=== PATIENT | female | born 1985 | race Hispanic/Latino ===

== ENCOUNTER 2018-11-08 17:46 | Emergency (ER) | payer SELFPAY ==
[2018-11-08] MEDS ORDERED: diphenhydrAMINE 25 MG CAP ONE (21:41)
[2018-11-08] MEDS ORDERED: Ketorolac Tromethamine 30 MG/ML VIAL ONE (21:41)
[2018-11-08] MEDS ORDERED: Ondansetron ODT 4 MG TAB ONE (21:41)
[2018-11-08] MEDS ORDERED: Metoclopramide HCl 10 MG TAB ONE (21:42)
== END 2018-11-08 22:29 | disposition home or self-care (01) ==
LOC: ERS 17:46
DX: G43.909 Migraine, unspecified, not intractable, without status migrainosus (principal)
CPT/HCPCS: 96372; J1885; J8597; Q0162; Q0163

== ENCOUNTER 2019-08-15 15:59 | Emergency (ER) | payer SELFPAY ==
[~2019-08-15 15:59] MED LIST: Iopamidol-370 76% 500 ML 1 ML ONE
[2019-08-15 17:34] LABS: #Basophils 0.1 thou/uL (0.0-0.2); #Eosinphils 0.4 thou/uL (0.0-0.7); #Lymphocytes 2.4 thou/uL (1.20-3.40); #Monocytes 0.9 thou/uL (0.11-0.59); #Neutrophils 5.6 thou/uL (1.40-6.50); %Basophils 0.8 % (0.0-1.0); %Eosinophils 4.6 % (0.0-10.0); %Lymphocytes 25.4 % (21.0-51.0); %Monocytes 9.3 % (0.0-10.0); Hemoglobin 9.7 g/dL (12.0-16.0); Mean Corpuscular Hemoglobin 26.3 pg (27.0-31.0); Mean Corpuscular Volume 82.1 fL (78.0-98.0); Mean Platelet Volume 7.2 fL (7.4-10.4); Platelet Count 284 thou/uL (130-400); RBC Distribution Width 15.8 % (11.5-14.5); White Blood Cell (WBC) Count 9.2 thou/uL (4.8-10.8)
[2019-08-15 17:40] LABS: BHCG - Serum Negative (NEGATIVE); Pregs Control Background? CLEAR/WHITE (CLR/WHITE); Pregs Control Bar Appear? YES (CONTROL BAR)
[2019-08-15] MEDS ORDERED: Ketorolac Tromethamine 30 MG/ML VIAL ONE (17:43)
[2019-08-15 17:58] LABS: ALT (SGPT) 7 U/L (8-55); AST (SGOT) 12 U/L (5-34); Albumin 4.2 g/dL (3.5-5.0); Alkaline Phosphatase 76 U/L (40-110); Anion Gap 10 mmol/L (10-20); BUN (Urea Nitrogen) 9 mg/dL (7.0-18.7); Bilirubin, Total 0.3 mg/dL (0.2-1.2); Calc. Creatinine Clearance 0 mL/min (70-130); Calcium 9.2 mg/dL (7.8-10.44); Carbon Dioxide 27 mmol/L (22-29); Chloride 104 mmol/L (98-107); Estimated GFR-MDRD Greater than 90; Globulin 3.9 g/dL (2.4-3.5); Glucose 90 mg/dL (70-105); Potassium 3.9 mmol/L (3.5-5.1); Protein, Total 8.1 g/dL (6.0-8.3); Sodium 137 mmol/L (136-145)
--- NOTE | 2019-08-15 19:01 | CT ---
CT neck noncontrast HISTORY: Neck pain and facial pain and swelling. FINDINGS: There is thickening and fat stranding involving the subcutaneous tissues superficial to the left masseter muscle. There is poor definition of the junction of the muscle and fat and some ill-defined low density involving the superficial portion of the left masseter muscle. The inflammati on remains anterior to the tail of the parotid gland. No focal fluid collections are apparent. Deeper tissues are uninvolved. Airway is patent. Mild mucosal thickening in the maxillary sinuses. Re active appearing lymph nodes along each side of the neck and at the submandibular and submental levels. IMPRESSION: Prominent inflammatory stranding involving the left masseter muscle and overlying subcuta neous tissues. The inflammation appears to remain separate from the parotid tail. No internal gas. Cause for inflammation is not apparent.
[2019-08-15] MEDS ORDERED: Clindamycin/D5W 900 mg/50 ml Premix Bag ONE (19:21)
[2019-08-15] MEDS ORDERED: Dexamethasone 10 MG/ML VIAL ONE (19:21)
== END 2019-08-15 20:53 | disposition home or self-care (01) ==
LOC: ERS 15:59
DX: M27.2 Inflammatory conditions of jaws (principal); G43.909 Migraine, unspecified, not intractable, without status migrainosus
CPT/HCPCS: 70491; 80053; 84703; 85025; J1100; J1885; J3490; Q9967

== ENCOUNTER 2021-03-28 15:03 | Emergency (ER) | payer SELFPAY ==
[2021-03-28] MEDS ORDERED: Metoclopramide HCl 10 MG/2 ML VIAL ONE (16:47)
[2021-03-28] MEDS ORDERED: Ketorolac Tromethamine 30 MG/ML VIAL ONE (16:47)
[2021-03-28] MEDS ORDERED: diphenhydrAMINE 50 MG/ML VIAL ONE (16:47)
== END 2021-03-28 18:58 | disposition home or self-care (01) ==
LOC: ERS 15:03
DX: G43.909 Migraine, unspecified, not intractable, without status migrainosus (principal)
CPT/HCPCS: 70450; 96365; 96366; 96375; J1200; J1885; J2765